=== PATIENT | female | born 1980 | race African-American/Black ===

== ENCOUNTER 2016-07-04 09:28 | Emergency (ER) | payer OTHER ==
[2016-07-04 09:44] VITALS: BP 126/96; PULSE 90; TEMP 98.1; BMI 43.9
[2016-07-04] MEDS ORDERED: ACETAMINOPHEN 500 MG TABLET (FP) PO ONE (09:58)
--- NOTE | 2016-07-04 10:02 | PDOC ---
History of Present Illness - General Chief Complaint: Vaginal Bleeding Stated Complaint: POSSIBLE MISCARRIAGE Time Seen by Provider: 07/04/16 09:34 History Source: Patient Exam Limitations: No Limitations - History of Present Illness Travel History: No Initial Comments: 07/04/16 09:58 35-year-old female presents to the ED with complaints of vaginal spotting yesterday which resolved with continual lower abdominal cramping. Patient states took a home test on Sunday which was positive. Patient denies fever, chills, dysuria, vaginal discharge, hematuria, diarrhea, low back pain presently. Timing/Duration: reports: constant Quality: reports: mild, cramping Abdominal Pain Onset Location: reports: suprapubic Pain Radiation: reports: no radiation Activities at Onset: reports: none Aggravating Factors: improves with: None Alleviating Factors: improves with: None Past History - Past Medical History Allergies/Adverse Reactions: Allergies Allergy/AdvReac Type Severity Reaction Status Date / Time No Known Allergies Allergy Verified 07/04/16 09:41 Home Medications: Ambulatory Orders NK [No Known Home Medication] 07/04/16 Other medical history: OVARIAN CYSTS. - Psycho/Social/Smoking Cessation Hx Anxiety: No Suicidal Ideation: No Smoking History: Current every day smoker Have you smoked in the past 12 months: No Number of Cigarettes Smoked Daily: 6 Information on smoking cessation initiated: No Hx Alcohol Use: No Drug/Substance Use Hx: No Substance Use Type: None, Alcohol Patient Lives Alone: No Lives with/in: spouse/SO Review of Systems - Review of Systems Able to Perform ROS?: Yes Constitutional: No: Symptoms Reported HEENTM: No: Symptoms Reported Respiratory: No: Symptoms reported Cardiac (ROS): No: Symptoms Reported ABD/GI: Yes: Abdominal cramping : Yes: Discharge Musculoskeletal: No: Symptoms Reported Integumentary: No: Symptoms Reported Neurological: No: Symptoms reported Endocrine: No: Symptoms Reported *Physical Exam - Vital Signs Last Vital Signs Temp Pulse Resp BP Pulse Ox 98.1 F 90 18 126/96 99 07/04/16 09:41 07/04/16 09:41 07/04/16 09:41 07/04/16 09:41 07/04/16 09:41 - Physical Exam General Appearance: Yes: Nourished, Appropriately Dressed. No: Apparent Distress HEENT: negative: Pale Conjunctivae Neck: positive: Supple Respiratory/Chest: positive: Lungs Clear, Normal Breath Sounds. negative: Respiratory Distress, Accessory Muscle Use Cardiovascular: positive: Regular Rhythm, Regular Rate. negative: Murmur Gastrointestinal/Abdominal: positive: Normal Bowel Sounds, Soft, Tenderness ( midsuprapubic) Musculoskeletal: negative: CVA Tenderness Extremity: positive: Normal Capillary Refill. negative: Pedal Edema Integumentary: positive: Normal Color, Warm, Moist Neurologic: positive: Normal Mood/Affect, Motor Strength 5/5 (ambulatory) Medical Decision Making - Medical Decision Making 07/04/16 10:02 Patient complains of vaginal spotting yesterday that resolved by the end of the day but has continued lower abdominal cramping and recent from that she was . Patient has no other complaints at this time. Patient on exam had no vaginal discharge or bleeding. No adnexal tenderness but did have mid suprapubic tenderness on exam. Patient ordered initially for urinalysis urine culture, Tylenol and urine . 07/04/16 11:03 Laboratory Tests 07/04/16 10:22 Ur Leukocyte Esterase 3+ H Urine RBC 11 Urine WBC 59 Ur Epithelial Cells Many Urine HCG, Qual Negative Discharge home with macrobid. No previous cx on file *DC/Admit/Observation/Transfer Diagnosis at time of Disposition: UTI (urinary tract infection) Qualifiers: Urinary tract infection type: acute cystitis Hematuria presence: with hematuria Qualified Code(s): N30.01 - Acute cystitis with hematuria - Discharge Dispostion Disposition: HOME Condition at time of disposition: Good - Patient Instructions Printed Discharge Instructions: DI for Urinary Tract Infection (UTI) Additional Instructions: Please take antibiotics as prescribed. May take tylenol for pain or fever. Return to the ED if symptoms worsen
[2016-07-04] MEDS ORDERED: ACETAMINOPHEN 325 MG TABLET (FP) ONE (10:20)
[2016-07-04 10:46] LABS: URINE APPEARANCE CLOUDY; URINE BILIRUBIN NEGATIVE (NEGATIVE); URINE BLOOD NEGATIVE (NEGATIVE); URINE COLOR YELLOW; URINE GLUCOSE (UA) NEGATIVE (NEGATIVE); URINE KETONE NEGATIVE (NEGATIVE); URINE LEUK ESTERASE 3+ (NEGATIVE); URINE NITRITE NEGATIVE (NEGATIVE); URINE PROTEIN NEGATIVE (NEGATIVE); URINE UROBILINOGEN NEGATIVE E.U./dl (0.2-1.0)
[2016-07-04 10:51] LABS: URINE MUCUS RARE; URINE RBC 11 /hpf (0-3); URINE WBC 59 /hpf (3-5)
== END 2016-07-04 11:18 | disposition home or self-care (01) ==
LOC: JER 09:28
DX: N30.01 Acute cystitis with hematuria (principal)
CPT/HCPCS: 81003; 81015; 84703; 87086; 99282-25

== ENCOUNTER 2022-06-14 13:31 | Emergency (ER) | payer OTHER ==
[2022-06-14 13:48] VITALS: BP 122/58; PULSE 96; RESP 18; TEMP 97.7; BMI 50.1
== END 2022-06-14 15:15 | disposition home or self-care (01) ==
LOC: JER 13:31
DX: Z00.00 Encounter for general adult medical examination without abnormal findings (principal)
CPT/HCPCS: 99281-25

== ENCOUNTER 2022-06-30 12:55 | Emergency (ER) | payer OTHER ==
[2022-06-30 13:07] VITALS: BP 131/86; PULSE 103; RESP 18; TEMP 98.1; BMI 50.1
[2022-06-30 14:51] LABS: BASO % 0.8 % (0-2.0); EOS % 7.1 % (0-4.5); HEMATOCRIT 43.3 % (32.4-45.2); LYMPH % 37.7 % (8-40); MCH 28.6 pg (25.7-33.7); MCHC 32.2 g/dl (32.0-36.0); MEAN CELL VOLUME 88.6 fl (80-96); MONO % 6.1 % (3.8-10.2); NEUT % 48.3 % (42.8-82.8); PLATELET COUNT 244 10^3/uL (134-434); RBC 4.89 M/mm3 (3.60-5.2); RDW 13.9 % (11.6-15.6); WHITE BLOOD COUNT 7.7 K/mm3 (4.0-10.0)
[2022-06-30 14:56] LABS: INR 1.06 (0.83-1.09); PROTHROMBIN TIME (PATIENT) 12.2 SEC (9.7-13.0)
[2022-06-30 14:59] LABS: ACTIVATED PTT 34.1 SECONDS (25.2-36.5)
[2022-06-30 15:11] LABS: BLOOD UREA NITROGEN 15.4 mg/dL (7-18); CALCIUM 9.2 mg/dL (8.5-10.1)
[2022-06-30 15:12] LABS: ALBUMIN 3.6 g/dl (3.4-5.0)
[2022-06-30 15:15] LABS: CREATININE 0.6 mg/dL (0.55-1.3)
[2022-06-30 15:16] LABS: BILIRUBIN,TOTAL 0.4 mg/dL (0.2-1); TOT PROT 7.6 g/dl (6.4-8.2)
== END 2022-06-30 21:25 | disposition left against medical advice (07) ==
LOC: JER 12:55
DX: O26.891 Other specified pregnancy related conditions, first trimester (principal); Z3A.09 9 weeks gestation of pregnancy
CPT/HCPCS: 36415; 80053; 84702; 85025; 85610; 85730; 86850; 86900; 86901; 99283-25